=== PATIENT | male | born 1980 | race Caucasian/White ===

== ENCOUNTER 2017-02-16 23:34 | Emergency (ER) | payer OTHER ==
[~2017-02-16] VITALS: Ht 182.9 cm; Wt 122.2 kg
[2017-02-16 23:42] VITALS: BP 107/69
--- NOTE | 2017-02-16 23:52 | NUR ---
TO ER BED 1
--- NOTE | 2017-02-16 23:55 | NUR ---
PATIENT IS A 36 Y/O MALE WHO PRESENTS TO THE ED C/O ABD PAIN AND VOMITING. PT STATES, "I FAINTED WHEN I VOMITED EARLIER." PT REPORTS 8/10 ACHING HEADACHE PAIN THAT DOES NOT RADITE. PT DENIES CP, SOB, REPORTS NAUSEA/VOMITING DENIES DIARRHEA. PT AAOX4, RR EVEN/UNLABORED. PT REPOSITIONED FOR COMFORT, BED IN LOWEST POSITION. ER MD BAGLEY SECHRIST NOTIFIED. WILL CONTINUE TO MONITOR. PT REPORTS CHILLS AND SWEATS.
[2017-02-17] MEDS ORDERED: NACL 0.9% 3,000 ML IV ONE (01:35)
[2017-02-17] MEDS ORDERED: ONDANSETRON 4 MG/2 ML VIAL IVP ONE (01:35)
[2017-02-17 02:26] LABS: HEMATOCRIT 45.8 % (36-52); HEMOGLOBIN 14.8 g/dL (12.0-18.0); MEAN CORPUSCULAR HEMOGLOBIN 28 pg (27-31); MEAN CORPUSCULAR HGB CONC 32 g/dL (33-37); MEAN CORPUSCULAR VOLUME 86 fL (80-94); PLATELET COUNT (AUTO) 168 K/uL (140-450); RED BLOOD CELL COUNT(AUTO) 5.35 MIL/uL (4.20-6.10); RED CELL DISTRIBUTION WIDTH 12.6 % (11.6-13.7); WHITE BLOOD COUNT (AUTO) 8.1 K/uL (4.8-10.8)
[2017-02-17 02:39] LABS: ANION GAP 10.3 (8-16); CARBON DIOXIDE 28.4 mmol/L (21-32); CREATININE 1.7 mg/dL (0.7-1.3); POTASSIUM 4.7 mmol/L (3.5-5.1)
[2017-02-17 02:45] LABS: EOSINOPHILS % (MANUAL) 1 % (0-4); LYMPHOCYTES % (MANUAL) 5 % (20-46); MONOCYTES % (MANUAL) 7 % (5-12)
[2017-02-17 02:46] LABS: ALBUMIN 3.6 g/dL (3.4-5.0); TOTAL BILIRUBIN 0.5 mg/dL (0.0-1.0)
[2017-02-17 04:11] LABS: APPEARANCE,URINE HAZY (CLEAR); BILIRUBIN,URINE NEGATIVE (NEGATIVE); BLOOD, URINE NEGATIVE (NEGATIVE); COLOR,URINE YELLOW (YELLOW); LEUKOCYTE ESTERASE ,URINE 1+ (NEGATIVE); NITRITE, URINE NEGATIVE (NEGATIVE); PH,URINE 5.5 (5.0-9.0); UGLUCOSE 2+ (NEGATIVE)
[2017-02-17 04:25] LABS: BARBITURATE, URINE NEGATIVE ng/ml (NEG <=200); BENZODIAZEPINE, URINE NEGATIVE ng/mL (NEG <=200); CANNABINOID, URINE NEGATIVE ng/mL (NEG <=50); COCAINE, URINE NEGATIVE ng/mL (NEG <=300); OPIATE, URINE NEGATIVE ng/mL (NEG <=2000); PHENCYCLIDINE SCREEN,URINE NEGATIVE ng/mL (NEG <=25)
[2017-02-17 04:30] LABS: RBC,URINE 3-10 (FEW) /HPF (0-5)
[2017-02-17 04:31] LABS: WBC,URINE TOO MANY TO COUNT /HPF (0-5)
--- NOTE | 2017-02-17 04:40 | NUR ---
IV removed, catheter intact and site benign. Applied folded 4x4 gauze and tape to stop bleeding.
[2017-02-17 04:45] VITALS: BP 128/75
--- NOTE | 2017-02-17 04:45 | NUR ---
Patient discharged with v/s stable. Written and verbal after care instructions given and explained. Patient alert, oriented and verbalized understanding of instructions. Ambulatory with steady gait. All questions addressed prior to discharge. ID band removed. Patient advised to follow up with PMD. Rx of ZOFRAN AND KEFLEX given. Patient educated on indication of medication including possible reaction and side effects. Opportunity to ask questions provided and answered.
== END 2017-02-17 04:45 | disposition home or self-care (01) ==
LOC: MED 23:34
DX: N17.9 Acute kidney failure, unspecified (principal); R55 Syncope and collapse; E11.9 Type 2 diabetes mellitus without complications; N39.0 Urinary tract infection, site not specified; R11.2 Nausea with vomiting, unspecified; E86.0 Dehydration; E03.9 Hypothyroidism, unspecified; I10 Essential (primary) hypertension; E78.00 Pure hypercholesterolemia, unspecified; F17.210 Nicotine dependence, cigarettes, uncomplicated
CPT/HCPCS: 36415; 71010; 80053; 80305; 81001; 83690; 84484; 85025; 87086; 96361; 96374; 99285; J2405; J7030; Q0092

== ENCOUNTER 2018-03-21 20:46 | Emergency (ER) | payer OTHER ==
[~2018-03-21] VITALS: Ht 182.9 cm; Wt 127.0 kg
[2018-03-21 21:08] VITALS: BP 142/90
[2018-03-21] MEDS ORDERED: KETOROLAC 60 MG/2 ML VIAL IM ONE (21:15)
[2018-03-21] MEDS ORDERED: ONDANSETRON 4 MG ODT PO ONE (21:15)
[2018-03-21 23:25] VITALS: BP 128/77
== END 2018-03-21 23:25 | disposition home or self-care (01) ==
LOC: MED 20:46
DX: R11.2 Nausea with vomiting, unspecified (principal); R51 Headache; E11.9 Type 2 diabetes mellitus without complications; I10 Essential (primary) hypertension; E03.9 Hypothyroidism, unspecified
CPT/HCPCS: 82948; 96372; 99283; J1885; Q0162

== ENCOUNTER 2018-03-22 15:18 | Emergency (ER) | payer OTHER ==
[~2018-03-22] VITALS: Ht 182.9 cm; Wt 125.4 kg
[2018-03-22 15:25] VITALS: BP 153/94
--- NOTE | 2018-03-22 15:40 | NUR ---
A 37 YO M BIB SELF W/ C/O VOMITING X 2 DAYS. PT SEEN LAST NIGHT HERE IN ER, TOLD HE HAS A VIRAL INFECTION AND GIVEN ABX. PT STATES THEY DID NOT DO BLOOD WORK AND HE IS WORRIED. PT REPORTS VOMITING 4-5X TODAY AND HAS NOT EATEN ANYTHING. STATES HE VOMITS UP WATER. STATES HE HAS 9/10 HEADACHE. DENIES TAKING ADVIL/TYLENOL.ABD ROUND AND SOFT AND NON TENDER. DENIES ANY FEVER OR CHILLS. RR EVEN AND UNLABORED. WILL CONTINUE TO MONITOR. SAFETY PRECAUTIONS IMPLEMENTED. WILL CONTINUE TO MONITOR. FAMILY AT BEDSIDE.
--- NOTE | 2018-03-22 16:20 | NUR ---
ER MD CHAN AT BEDSIDE AT THIS TIME.
[2018-03-22] MEDS ORDERED: NACL 0.9% 1,000 ML IV ONE (16:35)
--- NOTE | 2018-03-22 16:55 | NUR ---
INFLUENZA SPECIMEN COLLECTED AND HANDED TO GROVER MAGUIRE TECH
[2018-03-22] MEDS ORDERED: ONDANSETRON 4 MG/2 ML VIAL IVP ONE (17:50)
[2018-03-22 18:21] VITALS: BP 150/92
--- NOTE | 2018-03-22 18:21 | NUR ---
Patient discharged with v/s stable. Written and verbal after care instructions given and explained. Patient alert, oriented and verbalized understanding of instructions. Ambulatory with steady gait. All questions addressed prior to discharge. ID band removed. Patient advised to follow up with PMD. Rx of zofran 4 mg, codeine phosphate , naproxen given. Patient educated on indication of medication including possible reaction and side effects. Opportunity to ask questions provided and answered.
== END 2018-03-22 18:21 | disposition home or self-care (01) ==
LOC: MED 15:18
DX: E86.0 Dehydration (principal); R51 Headache; E11.9 Type 2 diabetes mellitus without complications; I10 Essential (primary) hypertension; E03.9 Hypothyroidism, unspecified
CPT/HCPCS: 36415; 82948; 87804; 96361; 96374; 99283; J2405; J7030

== ENCOUNTER 2019-01-29 12:13 | Emergency (ER) | payer SELFPAY ==
[~2019-01-29] VITALS: Ht 182.9 cm; Wt 103.4 kg
[2019-01-29 12:18] VITALS: BP 120/75
--- NOTE | 2019-01-29 12:18 | NUR ---
Patient ambulated to bed 4 at this time.
--- NOTE | 2019-01-29 12:30 | NUR ---
38 Y/O M C/O PAIN WITH URINATION FOR 1 WEEK. PATIENT STATES THE PAIN IS IN THE PENIS WHEN VOIDING AND ALSO STATES THAT IT CAN TAKE ABOUT 10 MINUTES TO URINATE COMPLETELY. PATIENT STATES THAT HE LEAKS URINE AFTER HE URINATES. DENIES FEVER, CHILLS, N/V.
--- NOTE | 2019-01-29 12:35 | NUR ---
GAVE PATIENT WATER. PATIENT IS UNABLE TO GIVE URINE SAMPLE AT THIS TIME.
[2019-01-29 13:07] LABS: BASOPHILS % (AUTO) 0.3 % (0.0-2.0); EOSINOPHILS # (AUTO) 0.1 K/uL (0-0.4); EOSINOPHILS % (AUTO) 1.4 % (0.0-4.0); HEMOGLOBIN 14.8 g/dL (12.0-18.0); LYMPHOCYTES # (AUTO) 2.2 K/uL (2.0-11.5); LYMPHOCYTES % (AUTO) 24.7 % (20.5-51.1); MEAN CORPUSCULAR HEMOGLOBIN 30 pg (27-31); MEAN CORPUSCULAR HGB CONC 34 g/dL (33-37); MEAN CORPUSCULAR VOLUME 89.2 fL (80-94); MONOCYTES # (AUTO) 0.6 K/uL (0.8-1.0); MONOCYTES % (AUTO) 6.7 % (1.7-9.3); NEUTROPHILS % (AUTO) 66.9 % (42.2-75.2); PLATELET COUNT (AUTO) 273 K/uL (140-450); RED BLOOD CELL COUNT(AUTO) 4.93 MIL/uL (4.20-6.10); RED CELL DISTRIBUTION WIDTH 13.3 % (11.6-13.7)
[2019-01-29 13:24] LABS: ALBUMIN 3.6 g/dL (3.4-5.0); ANION GAP 11.9 (8-16); CARBON DIOXIDE 29.2 mmol/L (21-32); POTASSIUM 4.1 mmol/L (3.5-5.1); TOTAL BILIRUBIN 0.4 mg/dL (0.0-1.0)
--- NOTE | 2019-01-29 13:36 | NUR ---
URINE SPECIMEN SENT TO LAB AT THIS TIME.
[2019-01-29 14:17] LABS: APPEARANCE,URINE HAZY (CLEAR); BILIRUBIN,URINE NEGATIVE (NEGATIVE); BLOOD, URINE NEGATIVE (NEGATIVE); COLOR,URINE YELLOW (YELLOW); LEUKOCYTE ESTERASE ,URINE TRACE (NEGATIVE); NITRITE, URINE NEGATIVE (NEGATIVE); UGLUCOSE NEGATIVE (NEGATIVE)
[2019-01-29 14:24] LABS: RBC,URINE NONE SEEN /HPF (0-5)
[2019-01-29 14:26] LABS: WBC,URINE 16-25 (MOD) /HPF (0-5)
[2019-01-29] MEDS ORDERED: cefTRIAXone 1,000 MG in LIDOCAINE MPF 1% 2.1 ML IM ONE (14:40)
[2019-01-29 15:03] VITALS: BP 173/76
--- NOTE | 2019-01-29 15:03 | NUR ---
DPatient discharged with BP 175/76, DENIES NOLAND OR DIZZINESS AT THIS TIME, MD MADE AWARE . Written and verbal after care instructions given and explained. Patient alert, oriented and verbalized understanding of instructions. Ambulatory with steady gait. All questions addressed prior to discharge. ID band removed. Patient advised to follow up with PMD. Rx of DOXYCYCLINE given. Patient educated on indication of medication including possible reaction and side effects. Opportunity to ask questions provided and answered.
--- NOTE | 2019-02-01 16:44 | NUR ---
Urine culture results received. Pt was sent home on Doxycyline. Dr. Connelly states pt does not need new prescription the medication is sensitive.
== END 2019-01-29 15:03 | disposition home or self-care (01) ==
LOC: MED 12:13
DX: N41.9 Inflammatory disease of prostate, unspecified (principal); E11.9 Type 2 diabetes mellitus without complications; I10 Essential (primary) hypertension; E03.9 Hypothyroidism, unspecified; Z88.5 Allergy status to narcotic agent; Z98.84 Bariatric surgery status
CPT/HCPCS: 36415; 80053; 81001; 85025; 87086; 87186; 96372; 99283; J0696; J2001

== ENCOUNTER 2019-04-30 22:49 | Emergency (ER) | payer OTHER ==
[~2019-04-30] VITALS: Ht 182.9 cm; Wt 99.8 kg
[2019-04-30 22:59] VITALS: BP 147/95
--- NOTE | 2019-04-30 23:08 | NUR ---
PT IS 38 Y/O MALE C/O OF SHARP PAIN UPON URINATION. PT STATES ITS BEEN GOING ON FOR A MONTH. HAS BEEN TREATED BY MULTIPLE DOCTORS, BUT STATES SYMPTOMS KEEPS RETURNING. LUNGS CLEAR, NO RESPIRATORY SYMPTOMS REPORTED. DENIES, NAUSEA, VOMITING, DIARRHEA. ABDOMEN SOFT. NONTENDER. MED HX: DM, HTN ALLERGIES: TRAMADOL
--- NOTE | 2019-04-30 23:23 | NUR ---
DR VAZ AT BEDSIDE
--- NOTE | 2019-05-01 00:02 | NUR ---
ULTRA SOUND AT BEDSIDE.
[2019-05-01 00:05] LABS: APPEARANCE,URINE CLEAR (CLEAR); BILIRUBIN,URINE NEGATIVE (NEGATIVE); BLOOD, URINE NEGATIVE (NEGATIVE); COLOR,URINE YELLOW (YELLOW); LEUKOCYTE ESTERASE ,URINE NEGATIVE (NEGATIVE); NITRITE, URINE NEGATIVE (NEGATIVE); UGLUCOSE NEGATIVE (NEGATIVE)
[2019-05-01] MEDS ORDERED: KETOROLAC 60 MG/2 ML VIAL IM ONE (01:05)
--- NOTE | 2019-05-01 01:15 | NUR ---
Patient discharged with v/s stable. Written and verbal after care instructions given and explained. Patient alert, oriented and verbalized understanding of instructions. Ambulatory with steady gait. All questions addressed prior to discharge. ID band removed. Patient advised to follow up with PMD. Rx of MOTRIN AND NORCO given. Patient educated on indication of medication including possible reaction and side effects. Opportunity to ask questions provided and answered.
[2019-05-01 01:16] VITALS: BP 147/95
== END 2019-05-01 01:15 | disposition home or self-care (01) ==
LOC: MED 22:49
DX: N50.89 Other specified disorders of the male genital organs (principal)
CPT/HCPCS: 76870; 81003; 96372; 99284; J1885; Q0092